=== PATIENT | male | born 1945 | race Caucasian/White ===

== ENCOUNTER 2018-08-10 13:10 | Emergency (ER) | payer MEDICARE, OTHER ==
[~2018-08-10] VITALS: Ht 185.4 cm; Wt 93.0 kg
[~2018-08-10 13:10] MED LIST: ASPI-1265 PO; ATOR10TA87 PO; CLOP75TA15 PO; METO25TA6 PO; NITR0.4T48 SL; VALS80TA2 PO; VARE0.5T PO
[2018-08-10] MEDS ORDERED: aspirin 81mg tab.chew PO ONE (13:15)
[2018-08-10] MEDS ORDERED: nitroGLYCERIN 0.4mg SUBLingual tab SL PRN (13:15)
[2018-08-10 13:58] LABS: BASOPHILS % (AUTO) 0.3 % (0-1); EOSINOPHILS # (AUTO) 0.7 X10'3 (0-0.9); EOSINOPHILS % (AUTO) 8.1 % (0-6); HEMOGLOBIN 15.2 g/dl (14.0-17.9); LYMPHOCYTES % (AUTO) 22.5 % (21-51); MEAN CORPUSCULAR HEMOGLOBIN 29.1 PG (27.0-31.0); MEAN CORPUSCULAR HGB CONC 33.8 % (33.0-36.5); MEAN PLATELET VOLUME 9.2 FL (7.4-10.4); MONOCYTES # (AUTO) 0.6 X10'3 (0-0.9); NEUTROPHILS # (AUTO) 5.6 X10'3 (1.8-7.7); NEUTROPHILS % (AUTO) 62.1 % (42-75); PLATELET COUNT 186 X10'3 (140-440); RED BLOOD COUNT 5.23 X10'6 (4.70-6.10); RED CELL DISTRIBUTION WIDTH 13.7 % (11.5-14.5); WHITE BLOOD COUNT 9.1 X10'3 (4.5-11.0)
[2018-08-10 14:11] LABS: ALANINE AMINOTRANSFERASE 32 U/L (12-78); ALBUMIN 3.4 G/DL (3.4-5.0); ALKALINE PHOSPHATASE 79 IU/L (46-116); ANION GAP 7 (8-16); ASPARTATE AMINO TRANSFERASE 20 U/L (10-37); BILIRUBIN,TOTAL 0.6 MG/DL (0.1-1.0); BLOOD UREA NITROGEN 13 MG/DL (7-18); BUN/CREATININE RATIO 12.6 (5.4-32.0); CALCIUM 10.1 MG/DL (8.5-10.1); CHLORIDE 103 MMOL/L (99-107); CREATININE 1.03 MG/DL (0.60-1.10); GLUCOSE 155 MG/DL (70-104); SODIUM 135 MMOL/L (135-145); TOTAL PROTEIN 6.9 G/DL (6.4-8.2); eGFR 71 ML/MIN
[2018-08-10 14:18] LABS: MAGNESIUM 1.8 MG/DL (1.5-2.4)
[2018-08-10 14:49] LABS: CLARITY,URINE CLEAR (Clear); COLOR,URINE YELLOW (Yellow); GLUCOSE, URINE NEGATIVE (Neg); KETONES,URINE NEGATIVE (Neg); LEUKOCYTE ESTERASE ,URINE NEGATIVE (Neg); NITRITES, URINE NEGATIVE (Neg); OCCULT BLOOD,URINE NEGATIVE (Neg); PROTEIN,URINE NEGATIVE (Neg); UROBILINOGEN,URINE 0.2 E.U/dL (0.2-1.0)
[2018-08-10 14:54] LABS: UA COLLECTION TYPE CLN CATCH MIDSTREAM
[2018-08-10 15:28] LABS: HEMOGLOBIN A1C 6.4 % (4.5-6.2)
[2018-08-10 15:34] LABS: CHOL/HDL RATIO 4.2 (0.00-4.99); CHOLESTEROL 135 MG/DL (0-200); HDL CHOLESTEROL 32 MG/DL (35-60); LDL CHOLESTEROL 76 MG/DL (50-100); TRIGLYCERIDES 322 MG/DL (20-135)
[2018-08-10 18:17] VITALS: BP 133/78
== END 2018-08-10 18:20 | disposition home or self-care (01) ==
LOC: ER 13:11
DX: I65.22 Occlusion and stenosis of left carotid artery (principal); R53.1 Weakness; R07.89 Other chest pain; R73.9 Hyperglycemia, unspecified; I25.10 Atherosclerotic heart disease of native coronary artery without angina pectoris; E78.00 Pure hypercholesterolemia, unspecified; I10 Essential (primary) hypertension; I25.2 Old myocardial infarction; G89.29 Other chronic pain; F17.200 Nicotine dependence, unspecified, uncomplicated; Z95.5 Presence of coronary angioplasty implant and graft; Z88.0 Allergy status to penicillin; Z88.8 Allergy status to other drugs, medicaments and biological substances; Z79.82 Long term (current) use of aspirin; Z79.899 Other long term (current) drug therapy
CPT/HCPCS: 36415; 71045; 80053; 80061; 81003; 83036; 83735; 83880; 84439; 84443; 84484; 85025; 93005; 93970; 99285

== ENCOUNTER 2019-06-21 09:33 | Inpatient (IN) | payer OTHER ==
[2019-06-20 16:42] LABS: BASOPHILS # (AUTO) 0.1 X10'3 (0-0.2); BASOPHILS % (AUTO) 0.8 % (0-1); EOSINOPHILS # (AUTO) 0.6 X10'3 (0-0.9); EOSINOPHILS % (AUTO) 9.1 % (0-6); LYMPHOCYTES # (AUTO) 1.7 X10'3 (1.1-4.8); LYMPHOCYTES % (AUTO) 26.7 % (21-51); MEAN CORPUSCULAR HEMOGLOBIN 27.3 PG (27.0-31.0); MEAN CORPUSCULAR HGB CONC 32.9 g/dL (33.0-36.5); MEAN PLATELET VOLUME 8.3 FL (7.4-10.4); MONOCYTES # (AUTO) 0.6 X10'3 (0-0.9); MONOCYTES % (AUTO) 9.1 % (2-12); NEUTROPHILS # (AUTO) 3.5 X10'3 (1.8-7.7); NEUTROPHILS % (AUTO) 54.3 % (42-75); PRE OP HEMATOCRIT 44.5 % (42.0-52.0); PRE OP HEMOGLOBIN 14.6 g/dL (14.0-17.9); PRE OP PLATELET COUNT 200 X10'3 (140-440); RED BLOOD COUNT 5.36 X10'6 (4.70-6.10); RED CELL DISTRIBUTION WIDTH 15.6 % (11.5-14.5)
[2019-06-20 16:59] LABS: PRE OP PROTIME 10.2 SECONDS (9.0-12.0)
[2019-06-20 17:00] LABS: ALBUMIN 3.7 G/DL (3.4-5.0); ALBUMIN/GLOBULIN RATIO 1.1 (1.1-1.5); ALKALINE PHOSPHATASE 87 IU/L (46-116); BLOOD UREA NITROGEN 14 MG/DL (7-18); BUN/CREATININE RATIO 14.1 (5.4-32.0); CALCIUM 9.9 MG/DL (8.5-10.1); CHLORIDE 105 MMOL/L (99-107); CREATININE 0.99 MG/DL (0.60-1.10); PRE OP ALT 32 U/L (30-65); PRE OP ANION GAP 4 (8-16); PRE OP AST 16 U/L (10-37); PRE OP BILIRUB, TOTAL 0.3 MG/DL (0.0-1.0); PRE OP GLUCOSE 114 MG/DL (70-104); PRE OP POTASSIUM 4.2 MMOL/L (3.4-5.1); PRE OP SODIUM 137 MMOL/L (135-145); TOTAL CARBON DIOXIDE 28.3 MMOL/L (24-32); TOTAL PROTEIN 7.2 G/DL (6.4-8.2); eGFR 74 ML/MIN
[2019-06-21] VITALS (23 sets, daily range): BP systolic 121–180; BP diastolic 62–96
[~2019-06-21] VITALS: Ht 185.4 cm; Wt 85.4 kg
[~2019-06-21 09:33] MED LIST changes: -NITR0.4T48 SL; +TRAZ-251 PO; -VARE0.5T PO; +heparin 10,000 units/1 ML INJ ONE
[2019-06-21] MEDS ORDERED: famotidine 20mg tablet PO ONE (10:45)
[2019-06-21] MEDS ORDERED: albuterol 2.5 MG/3 ML nebule NEB ONE (10:45)
[2019-06-21] MEDS ORDERED: ringers solution, lacted 1,000 ML IV SCH ×2 (10:45→14:38)
[2019-06-21] MEDS ORDERED: DOCUMENT DATE & TIME OF BETA-BLOCKER PO ONE (10:45)
[2019-06-21] MEDS ORDERED: clindamycin-Cleocin 900mg/D5W 50 ML IV ONE (10:45)
[2019-06-21] MEDS ORDERED: METO25TA6 PO (11:12)
[2019-06-21] MEDS: phenylephrine inj 20 MG in normal saline 250ml IV soln 248 ML IV SCH ×2 (11:25→18:05)
--- NOTE | 2019-06-21 12:32 | NUR ---
hematoma l hip size golf ball dr campbell aware and in to examine
[2019-06-21] MEDS ORDERED: fentaNYL /PF 50mcg/ml 5ml ampule ONE (12:41)
[2019-06-21] MEDS ORDERED: LIDOcaine 2% (20mg/ml) 5ml vial ONE (12:57)
[2019-06-21] MEDS ORDERED: rocuronium 10mg/ml inj IV ONE (12:57)
[2019-06-21] MEDS ORDERED: propofol inj 20 ML IV ONE (12:57)
[2019-06-21] MEDS ORDERED: heparin 1,000unit/ml 10ml vial 10 ML ONE (12:57)
[2019-06-21] MEDS ORDERED: dexamethasone sod phosphate 4mg/ml inj. ONE (12:58)
[2019-06-21] MEDS ORDERED: LIDOcaine 1% 30ml preserv. free vial ONE (13:13)
[2019-06-21] MEDS: nitroPRUSSIDE in NS 100 ML IV SCH (14:00)
--- NOTE | 2019-06-21 14:22 | NUR ---
Received from OR via ICU bed, accompanied by Anesthesiologist Sandra and report given by Anesthesiolgist. Pt alert and impulsive, MD at bedside administering meds. VS stable, pt unable to wear mask due to severe PTSD, high arash at 10L. Pt gets sleepy but extremely anxious and impulsive when he wakes up. MD requests small dose of sedation. ART line waveform acceptable after zeroing, ERA to left neck is present draining sanguinous fluid. MD remains at bedside.
[2019-06-21] MEDS ORDERED: labetalol 20mg/4ml (5mg/ml) syringe IV ONE (14:24)
[2019-06-21] MEDS: MIDAZolam 5mg/ml 2ml vial IV ONE ×2 (14:25→14:45)
[2019-06-21] MEDS ORDERED: midazolam 2 mg/2 ml injection ONE (14:26)
[2019-06-21] MEDS ORDERED: MIDAZolam 5mg/ml 2ml vial IV ONE (14:30)
[2019-06-21] MEDS ORDERED: nitroPRUSSIDE in NS 100 ML IV PRN (14:38)
[2019-06-21] MEDS ORDERED: phenylephrine inj 20 MG in normal saline 250ml IV soln 250 ML IV PRN (14:38)
[2019-06-21] MEDS ORDERED: HYDROmorphone inj. 0.5 MG/0.5 ML DISP.SYRIN IV PRN (14:40)
[2019-06-21] MEDS ORDERED: ondansetron/PF 4mg/2ml inj IV PRN (14:40)
--- NOTE | 2019-06-21 15:10 | NUR ---
Pt wakes up and is extremely anxious, trying to get out of bed, tugging at ERA drain and BP increases significantly. After much negotiation and attemptimg to calm patient and get him back into bed with multiple nurses present, versed given per MD orders. Pt still responsive but calm enough to get back into bed and BP stabilizes. Sanguinous fluid remains in ERA drain, visualization under dressing reveals very mild leakage and some swelling to surgical sight. Will continue to monitor closely and let ICU nurse know also to watch for swelling closely.
--- NOTE | 2019-06-21 15:42 | NUR ---
Pt has been difficult to calm, but remains in bed at this time. Pt successfully and safely transferred to CICU 2013, remains anxious but cooperative at this time. Pt transferred to ICU monitor without issues, report given earlier to Kristin DONIS and she is present at bedside during transfer. Pt's ART line remains intact, zeroed and good waveform present. aware of transfer. Belongings sent with patient on the bed.
[2019-06-21] MEDS ORDERED: glycopyrrolate 0.2mg/ml inj ONE (15:57)
[2019-06-21] MEDS ORDERED: neostigmine methylsulfate 1 MG/ML 10ml vial ONE (15:57)
--- NOTE | 2019-06-21 16:00 | NUR ---
Patient arrived to room with recover room RN, Georgina, at bedside. Patient anxious.
--- NOTE | 2019-06-21 17:43 | NUR ---
Received from OR via ICU bed, accompanied by Anesthesiologist Sandra and report given by Anesthesiolgist. Pt alert and impulsive, MD at bedside administering meds. VS stable, pt unable to wear mask due to severe PTSD, high arash at 10L. Pt gets sleepy but extremely anxious and impulsive when he wakes up. MD requests small dose of sedation. ART line waveform acceptable after zeroing, ERA to left neck is present draining sanguinous fluid. MD remains at bedside. Addendum: 06/21/19 at 2013 by Allyn Rios RN NOTE MADE AT INCORRECT TIME. Please see same note at earlier time!
[2019-06-21] MEDS ORDERED: ibuprofen tablet 400 MG TABLET PO PRN (17:45)
--- NOTE | 2019-06-21 18:29 | NUR ---
assumed care from hansa DONIS no questions or concerns after SBAR
[2019-06-21] MEDS: metoprolol tartrate 25mg tablet PO SCH (19:34)
--- NOTE | 2019-06-21 20:00 | NUR ---
patient in bed talking with sitter no observable s/s of acute stress at this time
[2019-06-21] MEDS ORDERED: traZODone 50mg tablet PO SCH (21:00)
[2019-06-21] MEDS ORDERED: atorvastatin 10mg tablet PO SCH (21:00)
--- NOTE | 2019-06-21 21:08 | NUR ---
patient in bed eyes closed blankets on hob 45 degrees television on rr even un labored no observable s/s of acute stress at this time, sitter at bedside
--- NOTE | 2019-06-21 22:43 | NUR ---
patient un able to fall asleep, was able to talk with patient help decrease anxiety, patient verbalized " i will ge through tonight thank you." patient in bed hob 45 degrees patient has over head light on and is talking with sitter, rr even un labored no observable s/s of acute stress at this time
[2019-06-22] VITALS (11 sets, daily range): BP systolic 107–149; BP diastolic 40–88
--- NOTE | 2019-06-22 00:26 | NUR ---
patient appears to be resting comfortably, patient is up in bed watching television, sitter with patient, sitter states " patient needs to be re directed every now and then." rr even un labored no observable s/s of acute stress at this time
[2019-06-22] MEDS: phenylephrine inj 20 MG in normal saline 250ml IV soln 248 ML IV SCH (00:45)
--- NOTE | 2019-06-22 02:31 | NUR ---
patient starting to get anxious and impulsive, I and sitters keep re-directing patient which helps briefly, before patient starts to get impulsive and anxious, wanting to get up out of bed and pull on lines, staff and I let patient know they are to be very very careful with all the lines, and it is ok to get up out of bed and use the chair,patient verbalizes understanding the importance of the lines. sitter at bedside call light with in reach of patient
[2019-06-22] MEDS: nitroPRUSSIDE in NS 100 ML IV SCH (02:54)
--- NOTE | 2019-06-22 04:06 | NUR ---
patient appears to have less anxiety and is in bed with covers on smiling while talking with the sitter provided, patients rr even un labored non observable s/s of acute stress at this time
--- NOTE | 2019-06-22 05:09 | NUR ---
Patient appears to be resting, patient has been up down to chair "can't get comfortable." states patient, patient denies pain states " i just want to go outside that's what i do." verbalized to the patient we need to stay in the hospital at this time, patient verbalized understanding, rr even un labored no observable s/s of acute stress at this time
--- NOTE | 2019-06-22 06:18 | NUR ---
sbar off to artie rn no questions or concerns after SBAR
[2019-06-22] MEDS: metoprolol tartrate 25mg tablet PO SCH (07:45)
[2019-06-22] MEDS ORDERED: losartan 50mg tablet PO SCH (08:00)
[2019-06-22] MEDS ORDERED: aspirin 81mg tab.chew PO SCH (08:00)
[2019-06-22] MEDS ORDERED: clopidogrel 75mg tablet PO SCH (08:00)
[2019-06-22 09:32] LABS: BASOPHILS % (AUTO) 0.4 % (0-1); EOSINOPHILS % (AUTO) 0.3 % (0-6); HEMATOCRIT 38.7 % (42.0-52.0); HEMOGLOBIN 12.5 g/dl (14.0-17.9); LYMPHOCYTES # (AUTO) 1.6 X10'3 (1.1-4.8); LYMPHOCYTES % (AUTO) 12.9 % (21-51); MEAN CORPUSCULAR HGB CONC 32.3 g/dL (33.0-36.5); MEAN CORPUSCULAR VOLUME 83.5 FL (78-98); MEAN PLATELET VOLUME 8.7 FL (7.4-10.4); MONOCYTES # (AUTO) 1.1 X10'3 (0-0.9); MONOCYTES % (AUTO) 8.5 % (2-12); NEUTROPHILS # (AUTO) 9.9 X10'3 (1.8-7.7); NEUTROPHILS % (AUTO) 77.9 % (42-75); PLATELET COUNT 193 X10'3 (140-440); RED BLOOD COUNT 4.63 X10'6 (4.70-6.10); RED CELL DISTRIBUTION WIDTH 15.4 % (11.5-14.5); WHITE BLOOD COUNT 12.7 X10'3 (4.5-11.0)
[2019-06-22 09:38] LABS: ALBUMIN 3.6 G/DL (3.4-5.0); ANION GAP 8 (8-16); BLOOD UREA NITROGEN 22 MG/DL (7-18); CALCIUM 10.2 MG/DL (8.5-10.1); CHLORIDE 101 MMOL/L (99-107); GLUCOSE 105 MG/DL (70-104); POTASSIUM 5.8 MMOL/L (3.5-5.1); SODIUM 134 MMOL/L (135-145); TOTAL CARBON DIOXIDE 24.8 MMOL/L (24-32); eGFR 66 ML/MIN
[2019-06-22] MEDS ORDERED: LORazepam 0.5 MG tablet PO PRN (12:55)
--- NOTE | 2019-06-22 13:26 | NUR ---
Dr Connolly at bedside order to repeat K draw and to pull drain. Drain pulled by Rn pt tolerated well neck dressed bruising noted. Will cont to monitor
--- NOTE | 2019-06-22 14:23 | NUR ---
Pt dc home per Dr Connolly. and pt given instructions on wound care and s/s of infection, and stroke. Pt verbalized understanding. Pt dc home with belongings via wheelchair to the lobby.
== END 2019-06-22 14:20 | disposition home or self-care (01) | DRG 38 ==
LOC: PAS IN 09:33 → EDSTATUS 12:45 → CICU 2S 15:35
PROVIDERS: ADMIT Surgery; ATTEND Surgery
PROC: 03CN0ZZ Extirpation of Matter from Left External Carotid Artery, Open Approach (ICD-10-PCS; 2019-06-21)
PROC: 03CL0ZZ Extirpation of Matter from Left Internal Carotid Artery, Open Approach (ICD-10-PCS; 2019-06-21)
PROC: 03CJ0ZZ Extirpation of Matter from Left Common Carotid Artery, Open Approach (ICD-10-PCS; principal; 2019-06-21 12:31)
DX: I65.22 Occlusion and stenosis of left carotid artery (principal); E87.1 Hypo-osmolality and hyponatremia; F32.9 Major depressive disorder, single episode, unspecified; J44.9 Chronic obstructive pulmonary disease, unspecified; I10 Essential (primary) hypertension; E11.9 Type 2 diabetes mellitus without complications; G47.33 Obstructive sleep apnea (adult) (pediatric); F43.10 Post-traumatic stress disorder, unspecified; I25.10 Atherosclerotic heart disease of native coronary artery without angina pectoris; E78.00 Pure hypercholesterolemia, unspecified; G89.29 Other chronic pain; F41.9 Anxiety disorder, unspecified; Z80.42 Family history of malignant neoplasm of prostate; Z82.0 Family history of epilepsy and other diseases of the nervous system; Z82.49 Family history of ischemic heart disease and other diseases of the circulatory system; Z88.0 Allergy status to penicillin; Z88.5 Allergy status to narcotic agent; I25.2 Old myocardial infarction; Z98.61 Coronary angioplasty status
CPT/HCPCS: 36415; 80048; 80053; 82948; 84132; 85025; 85610; 85730; 86885; 86900; 86901; 87081; 93005; 94640; 94760; 95813; 95816; A4618; A6258; A7000; G0378; J1100; J1644; J2001; J2250; J2370; J2704; J2710; J3010; J3490; J7040; J7050; J7120

== ENCOUNTER → 2021-04-30 | Outpatient (CLI) | payer OTHER ==
[~2021-04-30] MED LIST changes: +LOP25T PO; -METO25TA6 PO; -heparin 10,000 units/1 ML INJ ONE
== END | disposition home or self-care (01) ==
LOC: CARD DIAG 12:52
DX: I37.1 Nonrheumatic pulmonary valve insufficiency (principal); J98.6 Disorders of diaphragm
CPT/HCPCS: 93306

== ENCOUNTER 2021-08-04 12:33 | Emergency (ER) | payer OTHER ==
[~2021-08-04] VITALS: Ht 185.4 cm; Wt 90.0 kg
[2021-08-04 12:45] VITALS: BP 135/80
[2021-08-04 14:26] LABS: BASOPHILS % (AUTO) 0.6 % (0-1); EOSINOPHILS # (AUTO) 0.6 X10'3 (0-0.9); EOSINOPHILS % (AUTO) 7.1 % (0-6); HEMATOCRIT 46.3 % (42.0-52.0); HEMOGLOBIN 15.5 g/dl (14.0-17.9); LYMPHOCYTES # (AUTO) 1.7 X10'3 (1.1-4.8); LYMPHOCYTES % (AUTO) 21.4 % (21-51); MEAN CORPUSCULAR HGB CONC 33.5 g/dL (33.0-36.5); MEAN CORPUSCULAR VOLUME 86.4 FL (78-98); MEAN PLATELET VOLUME 9.1 FL (7.4-10.4); MONOCYTES # (AUTO) 0.7 X10'3 (0-0.9); MONOCYTES % (AUTO) 8.2 % (2-12); NEUTROPHILS # (AUTO) 5.1 X10'3 (1.8-7.7); NEUTROPHILS % (AUTO) 62.7 % (42-75); PLATELET COUNT 193 X10'3 (140-440); RED BLOOD COUNT 5.36 X10'6 (4.70-6.10); RED CELL DISTRIBUTION WIDTH 14.3 % (11.5-14.5); WHITE BLOOD COUNT 8.1 X10'3 (4.5-11.0)
[2021-08-04 14:35] LABS: ALANINE AMINOTRANSFERASE 36 U/L (12-78); ALBUMIN 3.7 G/DL (3.4-5.0); ALKALINE PHOSPHATASE 64 IU/L (46-116); ANION GAP 8 (8-16); ASPARTATE AMINO TRANSFERASE 24 U/L (10-37); BILIRUBIN,TOTAL 0.7 MG/DL (0.1-1.0); BLOOD UREA NITROGEN 15 MG/DL (7-18); BUN/CREATININE RATIO 17.2 (5.4-32.0); CALCIUM 9.5 MG/DL (8.5-10.1); CHLORIDE 104 MMOL/L (99-107); CREATININE 0.87 MG/DL (0.60-1.10); GLUCOSE 106 MG/DL (70-104); POTASSIUM 4.6 MMOL/L (3.5-5.1); SODIUM 138 MMOL/L (135-145); TOTAL CARBON DIOXIDE 26.4 MMOL/L (24-32); TOTAL PROTEIN 7.5 G/DL (6.4-8.2); eGFR 86 ML/MIN
== END 2021-08-04 15:41 | disposition home or self-care (01) ==
LOC: ER 12:33
DX: S00.83XA Contusion of other part of head, initial encounter (principal); S60.222A Contusion of left hand, initial encounter; S60.221A Contusion of right hand, initial encounter; H73.891 Other specified disorders of tympanic membrane, right ear; I25.10 Atherosclerotic heart disease of native coronary artery without angina pectoris; E78.00 Pure hypercholesterolemia, unspecified; I10 Essential (primary) hypertension; I25.2 Old myocardial infarction; G89.29 Other chronic pain; Z95.5 Presence of coronary angioplasty implant and graft; Z79.82 Long term (current) use of aspirin; Z79.899 Other long term (current) drug therapy; Z88.0 Allergy status to penicillin; Z88.5 Allergy status to narcotic agent; Z88.8 Allergy status to other drugs, medicaments and biological substances; W19.XXXA Unspecified fall, initial encounter; Y93.01 Activity, walking, marching and hiking; Y92.099 Unspecified place in other non-institutional residence as the place of occurrence of the external cause; Y99.8 Other external cause status
CPT/HCPCS: 36415; 70450; 70486; 72040; 80053; 85025; 99285

== ENCOUNTER 2021-10-09 05:35 | Emergency (ER) | payer OTHER, MEDICARE ==
[~2021-10-09] VITALS: Ht 185.4 cm; Wt 90.0 kg
[2021-10-09] MEDS: meclizine 12.5mg tablet PO ONE (06:01)
[2021-10-09] MEDS: ondansetron/PF 4mg/2ml inj IV ONE (06:39)
[2021-10-09] MEDS: normal saline 1000ML IV soln IVB ONE (06:40)
[2021-10-09] MEDS ORDERED: CefTRIAXone 1000mg IM Kit (w/lidocaine diluent) IM ONE (07:25)
[2021-10-09 07:42] LABS: BASOPHILS # (AUTO) 0.1 X10'3 (0-0.2); BASOPHILS % (AUTO) 0.7 % (0-1); EOSINOPHILS # (AUTO) 0.3 X10'3 (0-0.9); EOSINOPHILS % (AUTO) 4.6 % (0-6); HEMATOCRIT 41.4 % (42.0-52.0); HEMOGLOBIN 14.1 g/dl (14.0-17.9); LYMPHOCYTES % (AUTO) 14.4 % (21-51); MEAN CORPUSCULAR HEMOGLOBIN 29.4 PG (27.0-31.0); MEAN CORPUSCULAR VOLUME 86.4 FL (78-98); MEAN PLATELET VOLUME 9.8 FL (7.4-10.4); MONOCYTES # (AUTO) 0.6 X10'3 (0-0.9); MONOCYTES % (AUTO) 9.1 % (2-12); NEUTROPHILS % (AUTO) 71.2 % (42-75); PLATELET COUNT 161 X10'3 (140-440); RED BLOOD COUNT 4.79 X10'6 (4.70-6.10); WHITE BLOOD COUNT 7.1 X10'3 (4.5-11.0)
[2021-10-09 08:00] LABS: ALANINE AMINOTRANSFERASE 29 U/L (12-78); ALBUMIN/GLOBULIN RATIO 0.9 (1.1-1.5); ALKALINE PHOSPHATASE 62 IU/L (46-116); ANION GAP 8 (8-16); BILIRUBIN,TOTAL 0.5 MG/DL (0.1-1.0); BLOOD UREA NITROGEN 16 MG/DL (7-18); CHLORIDE 108 MMOL/L (99-107); GLUCOSE 136 MG/DL (70-104); SODIUM 141 MMOL/L (135-145); TOTAL CARBON DIOXIDE 25.3 MMOL/L (24-32); TOTAL PROTEIN 6.2 G/DL (6.4-8.2); eGFR > 90 ML/MIN
[2021-10-09 08:16] LABS: ASPARTATE AMINO TRANSFERASE 30 U/L (10-37); POTASSIUM 4.8 MMOL/L (3.5-5.1)
[2021-10-09 08:35] VITALS: BP 162/87
[2021-10-09] MEDS ORDERED: MECL-159 PO (09:11)
[2021-10-09] MEDS ORDERED: ONDA4TAB12 PO (09:11)
== END 2021-10-09 09:20 | disposition home or self-care (01) ==
LOC: ER 05:35
DX: R42 Dizziness and giddiness (principal); R53.1 Weakness; R11.10 Vomiting, unspecified; I25.10 Atherosclerotic heart disease of native coronary artery without angina pectoris; E78.00 Pure hypercholesterolemia, unspecified; I10 Essential (primary) hypertension; I25.2 Old myocardial infarction; G89.29 Other chronic pain; F41.9 Anxiety disorder, unspecified; Z98.890 Other specified postprocedural states; Z88.0 Allergy status to penicillin; Z88.5 Allergy status to narcotic agent; Z88.8 Allergy status to other drugs, medicaments and biological substances; Z79.82 Long term (current) use of aspirin; Z79.899 Other long term (current) drug therapy
CPT/HCPCS: 36415; 80053; 83880; 84484; 85025; 93005; 96361; 96374; 99284; J2405; J7030; J8597

== ENCOUNTER 2024-01-15 16:11 | Emergency (ER) | payer OTHER, MEDICARE ==
[~2024-01-15] VITALS: Ht 185.4 cm; Wt 84.1 kg
[~2024-01-15 16:11] MED LIST changes: +CYAN-34 PO; +DONE-46 PO; -TRAZ-251 PO
[2024-01-15] MEDS ORDERED: haloperidol decanoate 50mg/ml 1ml**long-acting** injection IM ONE (16:20)
[2024-01-15] MEDS: diphenhydrAMINE 50 mg/ml inj IV ONE (16:22)
[2024-01-15] MEDS: haloperidol lactate 5mg/ml inj IM ONE (16:27)
[2024-01-15] MEDS: quetiapine 100mg tablet PO STA (17:17)
[2024-01-15 17:34] LABS: BASOPHILS % (AUTO) 0.6 % (0-1); EOSINOPHILS # (AUTO) 0.3 X10'3 (0-0.9); EOSINOPHILS % (AUTO) 5.1 % (0-6); HEMATOCRIT 43.8 % (42.0-52.0); HEMOGLOBIN 14.4 g/dl (14.0-17.9); LYMPHOCYTES # (AUTO) 1.4 X10'3 (1.1-4.8); LYMPHOCYTES % (AUTO) 25.7 % (21-51); MEAN CORPUSCULAR HEMOGLOBIN 28.2 PG (27.0-31.0); MEAN CORPUSCULAR HGB CONC 32.8 g/dL (33.0-36.5); MEAN CORPUSCULAR VOLUME 85.9 FL (78-98); MEAN PLATELET VOLUME 9.7 FL (7.4-10.4); MONOCYTES # (AUTO) 0.4 X10'3 (0-0.9); MONOCYTES % (AUTO) 8.1 % (2-12); NEUTROPHILS # (AUTO) 3.2 X10'3 (1.8-7.7); NEUTROPHILS % (AUTO) 60.5 % (42-75); PLATELET COUNT 126 X10'3 (140-440); RED BLOOD COUNT 5.09 X10'6 (4.70-6.10); RED CELL DISTRIBUTION WIDTH 14.8 % (11.5-14.5); WHITE BLOOD COUNT 5.3 X10'3 (4.5-11.0)
[2024-01-15 17:42] LABS: ALBUMIN 3.5 G/DL (3.4-5.0); ANION GAP 8 (8-16); BLOOD UREA NITROGEN 19 MG/DL (7-18); BUN/CREATININE RATIO 18.6 (10.0-20.0); CALCIUM 9.6 MG/DL (8.5-10.1); CHLORIDE 101 MMOL/L (99-107); CREATININE 1.02 MG/DL (0.60-1.10); GLUCOSE 81 MG/DL (70-104); POTASSIUM 3.8 MMOL/L (3.5-5.1); SODIUM 138 MMOL/L (135-145); TOTAL CARBON DIOXIDE 29.1 MMOL/L (24-32); eCRCL 69 ML/MIN; eGFR 71 ML/MIN
[2024-01-15] MEDS ORDERED: OLANZapine 5mg rapidly disint. tablet PO ONE (18:25)
[2024-01-15] MEDS: OLANZapine **IM** 10 mg inj. IM ONE (18:50)
[2024-01-15] MEDS: normal saline 1000ML IV soln IV ONE (20:01)
[2024-01-15] MEDS: cloNIDine 0.1 MG/24 HOUR patch (7 day patch) TD ONE (20:25)
[2024-01-15] MEDS: labetalol 20mg/4ml (5mg/ml) syringe IV ONE ×2 (22:12→22:59)
[2024-01-16 00:52] LABS: BILIRUBIN,URINE NEGATIVE (Neg); CLARITY,URINE CLEAR (Clear); COLOR,URINE YELLOW (Yellow); GLUCOSE, URINE NEGATIVE (Neg); KETONES,URINE 15 mg/dl (Neg); LEUKOCYTE ESTERASE ,URINE NEGATIVE (Neg); NITRITES, URINE NEGATIVE (Neg); OCCULT BLOOD,URINE MODERATE (Neg); PROTEIN,URINE NEGATIVE (Neg); UROBILINOGEN,URINE 0.2 E.U/dL (0.2-1.0)
[2024-01-16 00:53] LABS: UA COLLECTION TYPE STRAIGHT CATH
[2024-01-16 01:11] LABS: BACTERIA,URINE NONE SEEN /HPF (Neg); WBC,URINE NONE SEEN /HPF (0-4)
[2024-01-16 01:13] LABS: MUCUS STRANDS NONE SEEN /LPF (Neg); SQUAMOUS EPITHELIAL CELL,UR NONE SEEN /LPF (FEW)
[2024-01-16] MEDS: OLANZapine **IM** 10 mg inj. IM ONE (04:03)
[2024-01-16] MEDS: dexamethasone sod phosphate 10mg/ml inj IV STA (08:53)
[2024-01-16] MEDS: hydrALAZINE 20mg/ml inj. IV ONE ×2 (08:53→12:53)
[2024-01-16] MEDS ORDERED: iohexol 300mg/ml 100ml inj. ONE (09:02)
[2024-01-16] MEDS: cefepime 2g/NS 100ml ADVANTAGE 100 ML IV ONE (09:32)
[2024-01-16] MEDS: VANCOmycin 1250MG/NS 250ml Bag 250 ML IV ONE (10:14)
[2024-01-17 09:06] VITALS: BP 187/104; PULSE 120; RESP 20; TEMP 98.6; O2SAT 96
== END 2024-01-17 09:08 | disposition home or self-care (01) ==
LOC: ER 16:12
DX: F03.90 Unspecified dementia, unspecified severity, without behavioral disturbance, psychotic disturbance, mood disturbance, and anxiety (principal); R45.1 Restlessness and agitation; E78.00 Pure hypercholesterolemia, unspecified; I10 Essential (primary) hypertension; Z88.0 Allergy status to penicillin; Z88.8 Allergy status to other drugs, medicaments and biological substances; Z88.5 Allergy status to narcotic agent; Z79.82 Long term (current) use of aspirin; Z79.899 Other long term (current) drug therapy
CPT/HCPCS: 36415; 70450; 71045; 74176; 80048; 81001; 83605; 85025; 87040; 93005; 96361; 96365; 96368; 96372; 96375; 96376; 99285; J0360; J0692; J1100; J1200; J1630; J3370; J3490; J7030; Q9967

== ENCOUNTER 2024-08-28 14:35 | Emergency (ER) | payer OTHER, MEDICARE ==
[~2024-08-28] VITALS: Ht 188 cm; Wt 102.3 kg
[2024-08-28 14:42] VITALS: TEMP 98
[2024-08-28 15:39] LABS: BASOPHILS % (AUTO) 0.7 % (0-1); EOSINOPHILS # (AUTO) 0.4 X10'3 (0-0.9); EOSINOPHILS % (AUTO) 6.7 % (0-6); HEMATOCRIT 42.2 % (42.0-52.0); HEMOGLOBIN 14.3 g/dl (14.0-17.9); LYMPHOCYTES # (AUTO) 1.5 X10'3 (1.1-4.8); LYMPHOCYTES % (AUTO) 22.1 % (21-51); MEAN CORPUSCULAR HEMOGLOBIN 29.9 PG (27.0-31.0); MEAN CORPUSCULAR HGB CONC 33.9 g/dL (33.0-36.5); MEAN CORPUSCULAR VOLUME 88.3 FL (78-98); MEAN PLATELET VOLUME 9.8 FL (7.4-10.4); MONOCYTES # (AUTO) 0.5 X10'3 (0-0.9); MONOCYTES % (AUTO) 7.3 % (2-12); NEUTROPHILS # (AUTO) 4.2 X10'3 (1.8-7.7); NEUTROPHILS % (AUTO) 63.2 % (42-75); PLATELET COUNT 179 X10'3 (140-440); RED BLOOD COUNT 4.78 X10'6 (4.70-6.10); RED CELL DISTRIBUTION WIDTH 13.8 % (11.5-14.5); WHITE BLOOD COUNT 6.7 X10'3 (4.5-11.0)
[2024-08-28 15:54] LABS: ALANINE AMINOTRANSFERASE 22 U/L (12-78); ALBUMIN 3.3 G/DL (3.4-5.0); ALBUMIN/GLOBULIN RATIO 0.9 (1.1-1.5); ALKALINE PHOSPHATASE 79 IU/L (46-116); ANION GAP 9 (8-16); ASPARTATE AMINO TRANSFERASE 23 U/L (10-37); BILIRUBIN,TOTAL 1.4 MG/DL (0.1-1.0); BLOOD UREA NITROGEN 24 MG/DL (7-18); BUN/CREATININE RATIO 20.3 (10.0-20.0); CALCIUM 9.6 MG/DL (8.5-10.1); CHLORIDE 102 MMOL/L (99-107); CREATININE 1.18 MG/DL (0.60-1.10); GLUCOSE 187 MG/DL (70-104); POTASSIUM 3.4 MMOL/L (3.5-5.1); SODIUM 138 MMOL/L (135-145); TOTAL CARBON DIOXIDE 27.4 MMOL/L (24-32); TOTAL PROTEIN 6.8 G/DL (6.4-8.2); eCRCL 60 ML/MIN; eGFR 60 ML/MIN
[2024-08-28 17:46] LABS: BILIRUBIN,URINE NEGATIVE (Neg); CLARITY,URINE CLEAR (Clear); COLOR,URINE YELLOW (Yellow); GLUCOSE, URINE NEGATIVE (Neg); KETONES,URINE NEGATIVE (Neg); LEUKOCYTE ESTERASE ,URINE NEGATIVE (Neg); NITRITES, URINE NEGATIVE (Neg); OCCULT BLOOD,URINE NEGATIVE (Neg); PROTEIN,URINE 30 mg/dl (Neg); UROBILINOGEN,URINE 0.2 E.U/dL (0.2-1.0)
[2024-08-28 17:54] LABS: UA COLLECTION TYPE URINAL
[2024-08-28 17:56] LABS: WBC,URINE 0-4 /HPF (0-4)
[2024-08-28 17:57] LABS: COARSE GRANULAR CAST 0-3 /LPF (NEGATIVE); MUCUS STRANDS FEW /LPF (Neg); SQUAMOUS EPITHELIAL CELL,UR FEW /LPF (FEW)
[2024-08-28 18:11] LABS: BACTERIA,URINE FEW /HPF (Neg); CAL OXALATE CRYSTALS 4+ /HPF (NEGATIVE); RBC,URINE 0-2 /HPF (0-2)
[2024-08-28 18:16] VITALS: BP 163/89; PULSE 77; RESP 19; O2SAT 97
== END 2024-08-28 18:18 | disposition home or self-care (01) ==
LOC: ER 14:36
DX: F03.90 Unspecified dementia, unspecified severity, without behavioral disturbance, psychotic disturbance, mood disturbance, and anxiety (principal); R41.0 Disorientation, unspecified; R47.81 Slurred speech; E78.00 Pure hypercholesterolemia, unspecified; I10 Essential (primary) hypertension; I25.10 Atherosclerotic heart disease of native coronary artery without angina pectoris; I25.2 Old myocardial infarction; Z95.1 Presence of aortocoronary bypass graft; Z88.0 Allergy status to penicillin; Z88.5 Allergy status to narcotic agent; Z88.8 Allergy status to other drugs, medicaments and biological substances; Z79.899 Other long term (current) drug therapy
CPT/HCPCS: 36415; 70450; 80053; 81001; 85025; 99284

== ENCOUNTER 2025-02-01 11:21 | Emergency (ER) | payer OTHER, MEDICARE ==
[~2025-02-01] VITALS: Ht 182.9 cm; Wt 80.0 kg
[~2025-02-01 11:21] MED LIST changes: -ATOR10TA87 PO; +ATOR20TA66 PO; +BUSP5TAB3 PO; +CHOL500049 PO; -CLOP75TA15 PO; -CYAN-34 PO; +DEXA6TAB PO; -DONE-46 PO; +DONE-55 PO; +FLO0.4C PO; -LOP25T PO; +METO-384 PO; +NOR5T PO; -VALS80TA2 PO
[2025-02-01 11:27] VITALS: TEMP 97.5
--- NOTE | 2025-02-01 11:57 | Physician Documentation ---
History of Present Illness ~ Chief Complaint: ALOC Stated Complaint: ALOC Time Seen by MD: 11:55 OK to notify your PCP?: Yes Primary Medical Doctor: connie black Source: patient, family, RN/MD, EMS, RN notes reviewed, EMS notes reviewed, old records Mode of Arrival: EMS Exam Limitations: clinical condition HPI 79 year old male with history of dementia presents to the emergency department via EMS for complaints of respiratory distress. Per EMS his found him this morning shaking, altered and having difficulty breathing and working really hard to do so. She states that he has been increasingly altered for one week. Additionally she states that he has been having foul smelling urine and breath for three days. Per EMS patient was saturating at 96% and was afibrile en route with a bg of 103. states that patient takes Metroporol. Patient denies any other associated symptoms at this time. Patient denies any other alleviating or exacerbating factors. 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 Scheduled Aspirin (Aspirin), 1 TAB.CHEW PO DAILY, (Reported) Atorvastatin Calcium (Atorvastatin Calcium), 1 TAB PO DAILY, (Reported) Buspirone HCl (Buspirone HCl), 1 TAB PO Q12H, (Reported) Cholecalciferol (Vitamin D3) (Vitamin D3), 1 CAP PO Q7D, (Reported) Donepezil Hcl (Donepezil Hcl), 1 TAB PO DAILY, (Reported) Metoprolol Succinate (Metoprolol Succinate), 1 TAB PO DAILY, (Reported) Tamsulosin Hcl (Flomax), 1 CAP PO DAILY, (Reported) Discontinued Medications Amlodipine Besylate (Amlodipine Besylate), 2 TAB PO DAILY Discontinued Reason: patient no longer taking Dexamethasone (Dexamethasone), 6 MG PO DAILY Discontinued Reason: patient no longer taking Past Medical History Past Medical History: Dementia, Coronary Artery Disease, High Cholesterol, Hypertension, Myocardial Infarction, Chronic Pain, Anxiety Past Surgical History: angioplasty, coronary bypass surgery Patient History: Alzheimer's disease MOTHER FH: ovarian cancer in first degree relative FH: prostate cancer FAMILY/OTHER FAMILY/OTHER Drug Use: none Lives with: Spouse Lives In: Home Occupation: retired Review of Systems All Other Systems at this time: Reviewed and Negative ROS Unable to obtain ROS Physical Exam Vital Signs: RN Vital Signs have been reviewed: Yes, Temperature: 97.5, Source: Oral, Heart Rate: 85, Respiratory Rate: 18, BP: 200/103, Pulse Oximetry: 95, Weight: 80.000 Pulse Oximetry Reflects: adequate oxygenation Physical Exam General: The patient is demented and fails to answer questions. He is well developed, well nourished, nontoxic appearing and is in no acute distress. Skin: Donovan, warm and dry with no rashes. HEENT: Head was normocephalic and atraumatic. Eyes - pupils equal, round, reactive to light and accommodation. Extraocular movements were intact. Co njunctivae were nonicteric. Ears - bilateral tympanic membranes were normal. The mouth and oropharynx were clear with moist mucous membranes. There were no pharyngeal exudates or erythema. Neck: Supple and nontender. There was no jugular venous distention, lymphadenopathy, thyromegaly or masses. Chest: Clear to auscultation bilaterally without wheezes, rales or rhonchi. No accessory muscle use. No dullness to percussion. Heart: Rate regular and rhythmic. S1, S2. No murmurs. Palpation of the chest wall was normal. No rubs or thrills. Abdomen: Soft, nontender and nondistended. Positive bowel sounds. No guarding or rebound. No hepatosplenomegaly or palpable masses. Extremities: No cyanosis, clubbing or edema. The patient moves all extremities. Pulses were equal and symmetric. Neurologic: Cranial nerves II-XII were intact. Sensation was intact to light touch throughout. Motor strength was 5/5 in all four extremities. Deep tendon reflexes were intact in both upper and lower extremities. Psychologic: The patient demonstrated appropriate judgement and insight. Progress Results/Orders Reviewed/noted all lab results: Yes Results/Orders Orders - GUNNAR ALANIS MD Electrocardiogram (02/01/25 11:57) Culture Blood (02/01/25 11:57) Chest,Single View (02/01/25 11:57) Straight Cath For Urine Sample (02/01/25 11:57) Completed Orders - GUNNAR ALANIS MD Electrocardiogram (02/01/25 11:57) Cbc/Diff (02/01/25 11:57) MG (02/01/25 11:57) Chest,Single View (02/01/25 11:57) Normal Saline 1000ml (Sodium Chloride 10 (02/01/25 12:00) Procalcitonin (02/01/25 11:57) Ceftriaxone 2gm/D5w 50ml Bag (Rocephin 2 (02/01/25 12:00) BMP (02/01/25 11:57) Hs Troponin I W Calculations (02/01/25 11:57) Lacticsepsis (02/01/25 11:57) Morphine 4mg/Ml Inj. (Morphine Inj.) (02/01/25 12:45) Metoprolol Succinate Er Tablet (Toprol X (02/01/25 14:05) Ua W/Microscopic, Cult If Ind (02/01/25 13:10) Metoprolol Tartrate Inj (Lopressor Iv) (02/01/25 14:30) Medications Received in ER Medications (Trade) Dose Ordered Sig/Franco Route PRN Reason Start Time Stop Time Status Last Admin Dose Admin (sodium chloride 1000ml IV soln) 2,000 ml ONCE ONCE IV 02/01/25 12:00 02/01/25 12:01 DC 02/01/25 12:59 2,000 ML Ceftriaxone Sodium/Dextrose 50 ml @ 100 mls/hr ONCE ONCE IV 02/01/25 12:00 02/01/25 12:29 DC 02/01/25 12:58 100 MLS/HR (Toprol XL (24-hour) tablet) 50 mg DAILY ONCE PO 02/01/25 14:05 02/01/25 14:06 DC 02/01/25 14:57 50 MG (Lopressor IV) 5 mg Q15M IV 02/01/25 14:30 02/01/25 15:01 DC 02/01/25 15:47 5 MG Vital Signs 02/01/25 02/01/25 02/01/25 02/01/25 11:27 11:38 12:38 14:53 Temp 97.5 Pulse 85 84 89 Resp 18 18 16 B/P (MAP) 200/103 206/112 (143) Pulse Ox 95 97 O2 Flow Rate 0 4/2402/01/25 02/01/25 02/01/25 14:55 14:56 15:47 15:48 Pulse 80 85 98 90 Resp 16 14 16 B/P (MAP) 205/102 (136) 196/108 (137) 187/116 (139) Pulse Ox 95 96 97 O2 Flow Rate 0 0 0 Laboratory Tests Test 02/01/25 12:16 02/01/25 13:10 White Blood Count 5.3 Red Blood Count 4.77 Hemoglobin 13.4 L Hematocrit 40.9 L Mean Corpuscular Volume 85.8 Mean Corpuscular Hemoglobin 28.2 Mean Corpuscular Hemoglobin Concent 32.9 L Red Cell Distribution Width 14.9 H Platelet Count 190 Mean Platelet Volume 9.3 Neutrophils (%) (Auto) 61.7 Lymphocytes (%) (Auto) 23.3 Monocytes (%) (Auto) 7.9 Eosinophils (%) (Auto) 6.2 H Basophils (%) (Auto) 0.9 Neutrophils # (Auto) 3.3 Lymphocytes # (Auto) 1.2 Monocytes # (Auto) 0.4 Eosinophils # (Auto) 0.3 Basophils # (Auto) 0.0 CBC Comment Sodium Level 142 Potassium Level 4.2 Chloride Level 107 Carbon Dioxide Level 30.6 Anion Gap 4 L Blood Urea Nitrogen 25 H Creatinine 1.08 Estimated GFR/1.73 m2 66 BUN/Creatinine Ratio 23.1 H Glucose Level 118 H Lactic Acid Level 1.3 Calcium Level 9.6 Magnesium Level 1.8 Troponin I High Sensitivity 34 Albumin 3.6 Procalcitonin < 0.05 Chemistry Comments Urine Specimen Description Straight cath Urine Color Yellow Urine Clarity Clear Urine pH 6.0 Urine Specific [place] 1.025 Urine Protein 30 H Urine Glucose (UA) Negative Urine Ketones Negative Urine Occult Blood Trace-intact Urine Nitrite Negative Urine Bilirubin Negative Urine Urobilinogen 0.2 Urine Leukocyte Esterase Negative Urine RBC 3-10 Urine WBC 0-4 Urine Squamous Epithelial Cells Few Urine Bacteria Few Urine Culture Indicated Not ind Volume Urine Centrifuged 10 ml Urine Comment Microbiology Date/Time Source Procedure Growth Status 02/01/25 12:16 Blood Arm Right Blood Culture - Preliminary NEGATIVE (LESS THAN 24 HOURS) Resulted Re-Evaluation Re-Evaluation : Re-Evaluation: Resolved, Improved Progress Patient was seen and examined. Patient was given reassurance. Patient was brought in because of foul-smelling urine altered mental status. Patient was seen in bed 10 immediately received fluids. Rocephin 2 g was given. However during the workup patient did not have any signs of infection with hydration his mental status improved he has end-stage dementia. states he does look better. Patient refuses to take medications from her so he received both oral and IV Lopressor. With negative laboratory work patient was then discharged home. Also patient was showing signs of improvement. Patient's CBC WBC was 5.3 without any leukocytosis. H and H was 13 and 40. Chemistry was within normal limits. BUN is slightly elevated at 25. BUN creatinine ratios slightly elevated 23.1 suggestive of some dehydration otherwise procalcitonin was negative as far as infection goes urinalysis showed a specific gravity of 1.025 again consistent with dehydration but no signs of infection. Patient was then discharged home. Continuous threat monitoring analyst interpretation shows normal sinus rhythm heart rate 80s, no ectopy, normal, my interpretation. Pulse oximetry monitor interpretation shows normal oxygenation 95% room air, normal, my interpretation. EKG/XRAY/CT/US/VASC/MRI EKG : Additional Comment [facility] Test Date: 2025-02-01 Test Time: 12:05:27 Pat Name: BLAIR FRANCO Department: [facility]- Patient ID: [id number] Room: Gender: Senior Corporate Accountant: : 1945 Requested By: GUNNAR ALANIS Order Number: [id number] Reading MD: Dr. Gunnar Alanis Measurements Intervals [place] Rate: 84 P: 57 MA: 150 QRS: -2 QRSD: 153 T: 73 QT: 419 QTc: 496 Interpretive Statements Sinus rhythm Nonspecific intraventricular conduction delay Baseline wander in lead(s) V4 Electronically Signed On 02-01-2025 14:11:[address] Gunnar Alanis Please click the below link to view image of tracing. EKG Date and Time:02/01/25 1205 Electronically Signed by: GUNNAR ALANIS MD Date and Time: 02/01/25 1411 Chest X-Ray : Additional Comments CHEST RADIOGRAPH Indication: SEPSIS Technique: Single frontal view of the chest was obtained COMPARISON: DI CHEST,SINGLE VIEW on DOS: 10/14/24, DI CHEST,SINGLE VIEW on DOS: 01/15/24, DI CHEST,SINGLE VIEW on DOS: 10/10/23, DI CHEST,SINGLE VIEW on DOS: 09/07/23, DI CHEST,SINGLE VIEW on DOS: 09/06/23 FINDINGS: Lines and Tubes: Median sternotomy Lungs: Increased interstitial prominence Pleura: No effusion. No pneumothorax. Cardiomediastinal contours: Unremarkable Bones: Unremarkable IMPRESSION: Possible mild pulmonary vascular congestion versus mild viral pneumonia Electronically Signed by:RITO FREIRE MD Date & Time: 02/01/25 1222 Medical Decision Making Additional info obtained from: old records Differential Dx:Considerations: Include: dehydration, Delirium Tr., DKA, en cephalopathy, hypercalcemia, hypoglycemia, hypernatremia, hyponatremia, hypoxia, postictal, closed head injury, C-spine injury, CVA, mass lesion, subarachnoid hemorrhage, drug overdose, encephalopathy, ETOH intoxication, medication toxicity, infection - sepsis, infection - UTI, heart failure, renal failure, respiratory failure, hyperthermia, hypothermia, other Departure Time of Disposition: 14:31 Disposition: 01 HOME / SELF CARE / HOMELESS Impression: Primary Impression: Transient mental status Additional Impressions: Hypertension Qualified Codes: I10 - Essential (primary) hypertension Dehydration Condition: Stable Discharge Instructions: Altered Mental Status Referrals: NO PRIMARY CARE PROVIDER (PCP) Education Educated: Family Educated regarding: diagnosis, treatment, need for follow up Signature Scribe Signature: Scribed for Gunnar Alanis MD by Sandi Hyman . 02/01/25 12:05 Attestation: The note accurately reflects work and decisions made by me.Gunnar Alanis MD 02/01/25 11:56 GUNNAR ALANIS MD Feb 01, 2025 11:56 SANDI BRIGHT Feb 01, 2025 12:05
--- NOTE | 2025-02-01 12:07 | ELECTROCARDIOGRAPH REPORT ---
[facility] Test Date: 2025-02-01 Test Time: 12:05:27 Pat Name: BLAIR FRANCO Department: [facility] Patient ID: [id number] Room: Gender: M Dock Associate: : 1945 Requested By: MACIEL GAMINO Order Number: [id number] Reading MD: Dr. Maciel Gamino Measurements Intervals [place] Rate: 84 P: 57 AL: 150 QRS: -2 QRSD: 153 T: 73 QT: 419 QTc: 496 Interpretive Statements Sinus rhythm Nonspecific intraventricular conduction delay Baseline wander in lead(s) V4 Electronically Signed On 02-01-2025 14:11:[address] Maciel Gamino Please click the below link to view image of tracing.
[2025-02-01 12:24] LABS: BASOPHILS % (AUTO) 0.9 % (0-1); EOSINOPHILS # (AUTO) 0.3 X10'3 (0-0.9); EOSINOPHILS % (AUTO) 6.2 % (0-6); HEMATOCRIT 40.9 % (42.0-52.0); HEMOGLOBIN 13.4 g/dl (14.0-17.9); LYMPHOCYTES # (AUTO) 1.2 X10'3 (1.1-4.8); LYMPHOCYTES % (AUTO) 23.3 % (21-51); MEAN CORPUSCULAR HEMOGLOBIN 28.2 PG (27.0-31.0); MEAN CORPUSCULAR HGB CONC 32.9 g/dL (33.0-36.5); MEAN CORPUSCULAR VOLUME 85.8 FL (78-98); MEAN PLATELET VOLUME 9.3 FL (7.4-10.4); MONOCYTES # (AUTO) 0.4 X10'3 (0-0.9); MONOCYTES % (AUTO) 7.9 % (2-12); NEUTROPHILS # (AUTO) 3.3 X10'3 (1.8-7.7); NEUTROPHILS % (AUTO) 61.7 % (42-75); PLATELET COUNT 190 X10'3 (140-440); RED BLOOD COUNT 4.77 X10'6 (4.70-6.10); RED CELL DISTRIBUTION WIDTH 14.9 % (11.5-14.5); WHITE BLOOD COUNT 5.3 X10'3 (4.5-11.0)
--- NOTE | 2025-02-01 12:24 | RADIOLOGY REPORT ---
CHEST RADIOGRAPH Indication: SEPSIS Technique: Single frontal view of the chest was obtained COMPARISON: DI CHEST,SINGLE VIEW on DOS: 10/14/24, DI CHEST,SINGLE VIEW on DOS: 01/15/24, DI CHEST,SINGLE VIEW on DOS: 10/10/23, DI CHEST,SINGLE VIEW on DOS: 09/07/23, DI CHEST,SINGLE VIEW on DOS: 09/06/23 FINDINGS: Lines and Tubes: Median sternotomy Lungs: Increased interstitial prominence Pleura: No effusion. No pneumothorax. Cardiomediastinal contours: Unremarkable Bones: Unremarkable IMPRESSION: Possible mild pulmonary vascular congestion versus mild viral pneumonia
[2025-02-01 12:42] LABS: ALBUMIN 3.6 G/DL (3.4-5.0); ANION GAP 4 (8-16); BLOOD UREA NITROGEN 25 MG/DL (7-18); BUN/CREATININE RATIO 23.1 (10.0-20.0); CALCIUM 9.6 MG/DL (8.5-10.1); CHLORIDE 107 MMOL/L (99-107); CREATININE 1.08 MG/DL (0.60-1.10); GLUCOSE 118 MG/DL (70-104); MAGNESIUM 1.8 MG/DL (1.5-2.4); POTASSIUM 4.2 MMOL/L (3.5-5.1); SODIUM 142 MMOL/L (135-145); TOTAL CARBON DIOXIDE 30.6 MMOL/L (24-32); eCRCL 62 ML/MIN; eGFR 66 ML/MIN
[2025-02-01] MEDS: morphine 4 MG/ML inj SYRINge IV ONE (12:45)
[2025-02-01] MEDS: CefTRIAXone 2gm/D5W 50ml BAG 50 ML IV ONE (12:58)
[2025-02-01] MEDS: normal saline 1000ML IV soln IV ONE (12:59)
[2025-02-01 14:14] LABS: BILIRUBIN,URINE NEGATIVE (Neg); CLARITY,URINE CLEAR (Clear); COLOR,URINE YELLOW (Yellow); GLUCOSE, URINE NEGATIVE (Neg); KETONES,URINE NEGATIVE (Neg); LEUKOCYTE ESTERASE ,URINE NEGATIVE (Neg); NITRITES, URINE NEGATIVE (Neg); OCCULT BLOOD,URINE TRACE-INTACT (Neg); PROTEIN,URINE 30 mg/dl (Neg); UROBILINOGEN,URINE 0.2 E.U/dL (0.2-1.0)
[2025-02-01 14:20] LABS: UA COLLECTION TYPE STRAIGHT CATH
[2025-02-01 14:23] LABS: WBC,URINE 0-4 /HPF (0-4)
[2025-02-01 14:24] LABS: BACTERIA,URINE FEW /HPF (Neg)
[2025-02-01] MEDS: metoprolol tartrate 1mg/ml inj IV SCH (14:53)
[2025-02-01] MEDS: metoprolol succinate 25mg (24-HOUR) SR. Tablet PO ONE (14:57)
[2025-02-01 15:48] VITALS: BP 187/116; PULSE 90; RESP 16; O2SAT 97
[2025-02-01 16:27] LABS: SQUAMOUS EPITHELIAL CELL,UR FEW /LPF (FEW)
== END 2025-02-01 16:18 | disposition home or self-care (01) ==
LOC: ER 11:22
DX: R40.4 Transient alteration of awareness (principal); I10 Essential (primary) hypertension; E86.0 Dehydration; I25.10 Atherosclerotic heart disease of native coronary artery without angina pectoris; F02.80 Dementia in other diseases classified elsewhere, unspecified severity, without behavioral disturbance, psychotic disturbance, mood disturbance, and anxiety; G30.9 Alzheimer's disease, unspecified; I25.2 Old myocardial infarction; E78.00 Pure hypercholesterolemia, unspecified; Z88.0 Allergy status to penicillin; Z88.5 Allergy status to narcotic agent; Z88.8 Allergy status to other drugs, medicaments and biological substances; Z95.1 Presence of aortocoronary bypass graft; Z79.82 Long term (current) use of aspirin; Z79.899 Other long term (current) drug therapy; G89.29 Other chronic pain
CPT/HCPCS: 36415; 71045; 80048; 81001; 83605; 83735; 84145; 84484; 85025; 87040; 93005; 96365; 96375; 96376; 99285; J0696; J3490; J7030; C1758

== ENCOUNTER 2025-02-05 08:35 | Emergency (ER) | payer OTHER, MEDICARE ==
[~2025-02-05] VITALS: Ht 182.9 cm; Wt 80.0 kg
[~2025-02-05 08:35] MED LIST changes: -DEXA6TAB PO; -NOR5T PO
--- NOTE | 2025-02-05 10:24 | Physician Documentation ---
History of Present Illness ~ Chief Complaint: ALOC Stated Complaint: ALOC Time Seen by MD: 10:22 Primary Medical Doctor: connie black Mode of Arrival: EMS HPI 79-year-old male with a history of CAD, hypertension, dementia brought in by ambulance along with his . Patient is nonverbal and can not provide a history. states that over the past three weeks that patient has had a great decline in his functioning hand clinical status. She states that this morning she went to wake him up and she was unable to. He appeared very altered and was not speaking. She also states that his legs were locked up and he would not move them. Patient typically is able to at least try and walk and is able to hold a conversation but this is much different from his normal baseline status. She states that he has gradually grown weaker. He also appeared to be having some issues with breathing earlier today. Patient was seen here last week and had a full workup done for a stroke which was negative and was then discharged. 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 Scheduled Aspirin (Aspirin), 1 TAB.CHEW PO DAILY, (Reported) Atorvastatin Calcium (Atorvastatin Calcium), 1 TAB PO DAILY, (Reported) Buspirone HCl (Buspirone HCl), 1 TAB PO Q12H, (Reported) Cholecalciferol (Vitamin D3) (Vitamin D3), 1 CAP PO Q7D, (Reported) Donepezil Hcl (Donepezil Hcl), 1 TAB PO DAILY, (Reported) Metoprolol Succinate (Metoprolol Succinate), 1 TAB PO DAILY, (Reported) Olanzapine* (Zyprexa Zydis Odt*), 1 TAB PO HS, (Reported) Tamsulosin Hcl (Flomax), 1 CAP PO DAILY, (Reported) Discontinued Medications Amlodipine Besylate (Amlodipine Besylate), 2 TAB PO DAILY Discontinued Reason: patient no longer taking Dexamethasone (Dexamethasone), 6 MG PO DAILY Discontinued Reason: patient no longer taking Past Medical History Past Medical History: Dementia, Coronary Artery Disease, High Cholesterol, Hypertension, Myocardial Infarction, Chronic Pain, Anxiety Past Surgical History: angioplasty, coronary bypass surgery Patient History: Alzheimer's disease MOTHER FH: ovarian cancer in first degree relative FH: prostate cancer FAMILY/OTHER FAMILY/OTHER Drug Use: none Lives with: Spouse Lives In: Home Occupation: retired Review of Systems All Other Systems at this time: Reviewed and Negative Physical Exam Vital Signs: Temperature: 99.5, Source: Oral, Heart Rate: 96, Respiratory Rate: 25, BP: 163/87, Pulse Oximetry: 90, Weight: 80.000 Physical Exam I have reviewed the triage vitals. CONST: Nonverbal, no acute distress HENT: Head Atraumatic EYES: Pupils are equal, round and reactive to light. Normal conjunctiva NECK: Normal range of motion. Supple. CARDIO: Normal rate and regular rhythm. No murmurs, rubs, or gallops. S1, S2. PULM/CHEST: No respiratory distress. Diminished breath sounds bilaterally ABD: Soft and nontender. Nondistended. Bowel sounds normal. No guarding. : Exam deferred MSK: No edema. No deformity. NEURO: Patient opens eyes to voice but is nonverbal and does not respond., withdraws to pain SKIN: Warm and dry. PSYCH: Unable to assess Progress Results/Orders Results/Orders Orders - JORGITO SRINIVASAN MD Type And Screen (02/05/25 10:25) Culture Blood (02/05/25 10:25) Chest,Single View (02/05/25 10:25) Ct Head (02/05/25 11:03) Hs Troponin I W Calculations (02/05/25 12:25) Hs Troponin I W Calculations (02/05/25 13:25) Straight Cath For Urine Sample (02/05/25 10:25) Nicardipine-Ns 40mg/200ml Ivpb (Cardene- (02/05/25 11:55) Lactic,2hr (02/05/25 12:28) Completed Orders - JORGITO SRINIVASAN MD Cbc/Diff (02/05/25 10:25) CK (02/05/25 10:25) Pt Inr (02/05/25 10:25) PTT (02/05/25 10:25) Chest,Single View (02/05/25 10:25) PBNP (02/05/25 10:25) MG (02/05/25 10:25) Normal Saline 1000ml (Sodium Chloride 10 (02/05/25 10:25) Ct Head (02/05/25 11:03) CMP (02/05/25 10:25) Hs Troponin I W Calculations (02/05/25 10:25) Lacticsepsis (02/05/25 10:25) Ua W/Microscopic, Cult If Ind (02/05/25 09:21) Electrocardiogram (02/05/25 09:04) Medications Received in ER Medications (Trade) Dose Ordered Sig/Franco Route PRN Reason Start Time Stop Time Status Last Admin Dose Admin (sodium chloride 1000ml IV soln) 500 ml ONCE ONCE IVB 02/05/25 10:25 02/05/25 10:28 DC 02/05/25 11:40 500 ML Nicardipine/ Sodium Chloride 200 ml @ 25 mls/hr Q8H IV 02/05/25 11:55 02/05/25 12:34 25 MLS/HR Vital Signs 02/05/25 02/05/25 02/05/25 02/05/25 08:41 08:45 09:00 09:15 Temp 99.5 98.4 Pulse 96 96 99 102 Resp 21 B/P (MAP) 163/87 163/87 (112) 164/86 (112) 181/99 (126) Pulse Ox 90 90 96 86 O2 Flow Rate 2.0 2.0 4.0 02/05/25 02/05/25 02/05/25 02/05/25 09:30 09:45 09:53 10:00 Pulse 94 96 91 Resp 21 B/P (MAP) 139/87 (104) 143/95 (111) 155/86 (109) Pulse Ox 91 94 94 O2 Flow Rate 4.0 4.0 4.0 02/05/25 02/05/25 02/05/25 02/05/25 10:15 10:30 10:45 11:00 Temp 98.1 Pulse 101 101 101 102 Resp 39 B/P (MAP) 195/98 (130) 188/110 (136) 175/129 (144) 175/129 (144) Pulse Ox 92 97 96 97 O2 Flow Rate 4.0 4.0 4.0 4.0 4/28/25 02/05/25 02/05/25 02/05/25 11:15 11:30 11:45 12:00 Pulse 96 91 98 98 B/P (MAP) 170/94 (119) 158/95 (116) 201/102 (135) 209/115 (146) Pulse Ox 95 96 95 98 O2 Flow Rate 4.0 4.0 4.0 4.0 02/05/25 02/05/25 02/05/25 02/05/25 12:05 12:10 12:15 12:20 Pulse 98 89 91 91 B/P (MAP) 209/114 (145) 175/85 (115) 137/72 (93) 144/73 (96) Pulse Ox 100 98 99 99 O2 Flow Rate 4.0 4.0 4.0 4.0 02/05/25 02/05/25 02/05/25 02/05/25 12:25 12:28 12:30 12:34 Pulse 91 97 Resp 24 B/P (MAP) 137/75 (95) 157/8 (57) 209/115 Pulse Ox 98 99 O2 Flow Rate 4.0 4.0 Laboratory Tests Test 02/05/25 09:21 02/05/25 10:24 02/05/25 12:33 Urine Specimen Description [place] cath Urine Color Yellow Urine Clarity Cloudy Urine pH 6.0 Urine Specific [place] >=1.030 Urine Protein 30 H Urine Glucose (UA) Negative Urine Ketones Trace H Urine Occult Blood Negative Urine Nitrite Negative Urine Bilirubin Negative Urine Urobilinogen 0.2 Urine Leukocyte Esterase Negative Urine RBC None seen Urine WBC 0-4 Urine Squamous Epithelial Cells Few Urine Amorphous Urates 3+ Urine Bacteria Few Urine Culture Indicated Not ind Volume Urine Centrifuged 10 ml Urine Comment White Blood Count 9.3 Red Blood Count 4.74 Hemoglobin 13.4 L Hematocrit 40.7 L Mean Corpuscular Volume 85.7 Mean Corpuscular Hemoglobin 28.3 Mean Corpuscular Hemoglobin Concent 33.0 Red Cell Distribution Width 15.0 H Platelet Count 174 Mean Platelet Volume 9.8 Neutrophils (%) (Auto) 73.0 Lymphocytes (%) (Auto) 13.8 L Monocytes (%) (Auto) 11.2 Eosinophils (%) (Auto) 1.7 Basophils (%) (Auto) 0.3 Neutrophils # (Auto) 6.8 Lymphocytes # (Auto) 1.3 Monocytes # (Auto) 1.0 H Eosinophils # (Auto) 0.2 Basophils # (Auto) 0.0 CBC Comment Prothrombin Time 10.4 INR International Normalized Ratio 1.0 Activated Partial Thromboplast Time 27 Coagulation Comments Sodium Level 141 Potassium Level 3.9 Chloride Level 105 Carbon Dioxide Level 28.8 Anion Gap 7 L Blood Urea Nitrogen 47 H Creatinine 1.28 H Estimated GFR/1.73 m2 54 BUN/Creatinine Ratio 36.7 H Glucose Level 141 H Lactic Acid Level 2.1 H Calcium Level 10.0 Magnesium Level 1.9 Total Bilirubin 1.1 H Aspartate Amino Transf (AST/SGOT) 25 Alanine Aminotransferase (ALT/SGPT) 27 Alkaline Phosphatase 77 Total Creatine Kinase 414 H Troponin I High Sensitivity 33 Pro-B-Type Natriuretic Peptide 266 Total Protein 6.8 Albumin 3.4 Globulin 3.4 Albumin/Globulin Ratio 1.0 L Chemistry Comments EKG/XRAY/CT/US/VASC/MRI EKG : Additional Comment EKG as interpreted by me indicates a atrial paced rhythm which is normal sinus rhythm with a rate of 78 beats per minute, there are no signs of ischemia, mk l axis Chest X-Ray : Additional Comments EXAM: DI CHEST,SINGLE VIEW Indication: ALOC Technique: Single frontal view of the chest was obtained Comparison: DI CHEST,SINGLE VIEW on DOS: 02/01/25, DI CHEST,SINGLE VIEW on DOS: 10/14/24, DI CHEST,SINGLE VIEW on DOS: 01/15/24, DI CHEST,SINGLE VIEW on DOS: 10/10/23, DI CHEST,SINGLE VIEW on DOS: 09/07/23 FINDINGS: Lines and Tubes: None Lungs: No focal consolidation. Pleura: No effusion. No pneumothorax. Cardiomediastinal contours: Unremarkable. Atherosclerotic vascular calcifications of the thoracic aorta are noted. Bones: No acute osseous abnormality. IMPRESSION: No acute cardiopulmonary disease. : Impression EXAM: CT CT HEAD INDICATION: ALOC TECHNIQUE: CT of the head without intravenous contrast. Radiation Dose : 1. Head: CT Dose: CTDI volume is 63.3 mGy. Dose-length product is 1194.7 mGy*cm The dose indicators for CT are the volume Computed Tomography (CT) Dose Index (CTDIvol) and the Dose Length Product (DLP), and are measured in units of mGy and mGy-cm, respectively. These indicators are not patient dose, but values generated from the CT scanner acquisition factors. The report includes radiation exposure data for exposures received during this examination. COMPARISON: CT CT HEAD on DOS: 08/28/24, CT CT HEAD on DOS: 01/15/24, CT CT HEAD on DOS: 10/10/23, CT CT HEAD on DOS: 10/10/23, CT CT STROKE ALERT on DOS: 09/06/23 FINDINGS: Left subdural hematoma measuring 2.7 cm in AP dimension with fluid fluid level concerning for active bleeding. There is a 1.2 cm left to right midline shift. There is associated effacement and edema in the entire left cerebral hemisphere. There is a mass effect on the left lateral ventricles. Possible subdural hygroma versus chronic subdural hematoma the right cerebral hemisphere measuring 10 mm. Patchy periventricular and subcortical white matter hypoattenuation is nonspecific but may be related to small vessel ischemic disease. The visualized paranasal sinuses and mastoid air cells are clear. The surrounding soft tissues and osseous structures are unremarkable. IMPRESSION: Left subdural hematoma measuring 2.7 cm in AP dimension with fluid fluid level concerning for active bleeding. There is a 1.2 cm left to right midline shift. There is associated effacement and edema in the entire left cerebral hemisphere. There is a mass effect on the left lateral ventricles. Possible subdural hygroma versus chronic subdural hematoma the right cerebral hemisphere measuring 10 mm. Critical Result: Intracranial hemorrhage Findings discussed with JORGITO SRINIVASAN at 02/05/2025 11:36 AM, and acknowledged receipt and understanding of the findings. Medical Decision Making Additional Information This is a 79-year-old male who presents with acute onset altered level of consciousness. He has baseline dementia however he has deviated significantly from his baseline with a past couple of days. His workup including labs and imaging indicates that he has a subdural hematoma present with a midline shift. I spoke with the patient's and she mentioned that the patient has been falling a lot but she does not recall any specific instances of him hitting his head. His lab workup was otherwise grossly unremarkable. EKG was also grossly unremarkable. The patient was protecting his airway but did require some oxygen by nasal cannula to keep his oxygen saturation above 90%. Patient was hypertensive with systolic blood pressures in the 190s. He was started on a nicardipine drip with titration to keep blood pressure below 140 systolic. I spoke with emergency physician over at [facility] who agreed to accept the patient for transfer. Patient needs to be transferred due to the fact that we do not have neurosurgery service available at our hospital but it is available at [facility]. Patient to be transferred via EMS. Departure Disposition: 02 SHORT TERM HOSPITAL ([facility]) Impression: Primary Impression: Subdural hematoma Additional Impression: Altered level of consciousness Condition: Critical Referrals: NO PRIMARY CARE PROVIDER (PCP) Critical Care Note Total Time (mins): 103 Critical Care Note The very real possibility of a deterioration of this patient's condition required the highest level of my preparedness for sudden, emergent intervention. I provided critical care services, which included medication orders, frequent reevaluations of the patient's condition and response to treatment, ordering and reviewing test results, and discussing the case with various consultants. Excludes time spent performing separately billable procedures. The critical care time associated with the care of the patient was. Signature Scribe Signature: 1 Attestation: 1 JORGITO SRINIVASAN MD Feb 05, 2025 10:24
[2025-02-05 11:00] VITALS: TEMP 98.1
[2025-02-05 11:01] LABS: BASOPHILS % (AUTO) 0.3 % (0-1); EOSINOPHILS # (AUTO) 0.2 X10'3 (0-0.9); EOSINOPHILS % (AUTO) 1.7 % (0-6); HEMATOCRIT 40.7 % (42.0-52.0); HEMOGLOBIN 13.4 g/dl (14.0-17.9); LYMPHOCYTES # (AUTO) 1.3 X10'3 (1.1-4.8); LYMPHOCYTES % (AUTO) 13.8 % (21-51); MEAN CORPUSCULAR HEMOGLOBIN 28.3 PG (27.0-31.0); MEAN CORPUSCULAR VOLUME 85.7 FL (78-98); MEAN PLATELET VOLUME 9.8 FL (7.4-10.4); MONOCYTES % (AUTO) 11.2 % (2-12); NEUTROPHILS # (AUTO) 6.8 X10'3 (1.8-7.7); PLATELET COUNT 174 X10'3 (140-440); RED BLOOD COUNT 4.74 X10'6 (4.70-6.10); WHITE BLOOD COUNT 9.3 X10'3 (4.5-11.0)
[2025-02-05 11:18] LABS: ALANINE AMINOTRANSFERASE 27 U/L (12-78); ALBUMIN 3.4 G/DL (3.4-5.0); ALKALINE PHOSPHATASE 77 IU/L (46-116); ANION GAP 7 (8-16); ASPARTATE AMINO TRANSFERASE 25 U/L (10-37); BILIRUBIN,TOTAL 1.1 MG/DL (0.1-1.0); BLOOD UREA NITROGEN 47 MG/DL (7-18); BUN/CREATININE RATIO 36.7 (10.0-20.0); CHLORIDE 105 MMOL/L (99-107); CREATININE 1.28 MG/DL (0.60-1.10); GLUCOSE 141 MG/DL (70-104); POTASSIUM 3.9 MMOL/L (3.5-5.1); SODIUM 141 MMOL/L (135-145); TOTAL CARBON DIOXIDE 28.8 MMOL/L (24-32); TOTAL PROTEIN 6.8 G/DL (6.4-8.2); eCRCL 52 ML/MIN; eGFR 54 ML/MIN
[2025-02-05 11:23] LABS: APTT 27 SECONDS (22-32); PROTHROMBIN TIME 10.4 SECONDS (9.0-12.0)
[2025-02-05 11:25] LABS: CREATINE KINASE 414 U/L (39-308); MAGNESIUM 1.9 MG/DL (1.5-2.4); PRO BRAIN NATRIURETIC PEPTIDE 266 PG/ML (0-450)
[2025-02-05 11:35] LABS: BILIRUBIN,URINE NEGATIVE (Neg); CLARITY,URINE CLOUDY (Clear); COLOR,URINE YELLOW (Yellow); GLUCOSE, URINE NEGATIVE (Neg); KETONES,URINE TRACE mg/dl (Neg); LEUKOCYTE ESTERASE ,URINE NEGATIVE (Neg); NITRITES, URINE NEGATIVE (Neg); OCCULT BLOOD,URINE NEGATIVE (Neg); PROTEIN,URINE 30 mg/dl (Neg); UROBILINOGEN,URINE 0.2 E.U/dL (0.2-1.0)
--- NOTE | 2025-02-05 11:39 | RADIOLOGY REPORT ---
EXAM: CT CT HEAD INDICATION: ALOC TECHNIQUE: CT of the head without intravenous contrast. Radiation Dose : 1. Head: CT Dose: CTDI volume is 63.3 mGy. Dose-length product is 1194.7 mGy*cm The dose indicators for CT are the volume Computed Tomography (CT) Dose Index (CTDIvol) and the Dose Length Product (DLP), and are measured in units of mGy and mGy-cm, respectively. These indicators are not patient dose, but values generated from the CT scanner acquisition factors. The report includes radiation exposure data for exposures received during this examination. COMPARISON: CT CT HEAD on DOS: 08/28/24, CT CT HEAD on DOS: 01/15/24, CT CT HEAD on DOS: 10/10/23, CT C T HEAD on DOS: 10/10/23, CT CT STROKE ALERT on DOS: 09/06/23 FINDINGS: Left subdural hematoma measuring 2.7 cm in AP dimension with fluid fluid level concerning for active bleeding. There is a 1.2 cm left to right midline shift. There is associated effacement and edema in the entire left cerebral hemisphere. There is a mass effect on the left lateral ventricles. Possible subdural hygroma versus chronic subdural hematoma the right cerebral hemisphere measuring 10 mm. Patchy periventricular and subcortical white matter hypoattenuation is nonspecific but may be related to small vessel ischemic disease. The visualized paranasal sinuses and mastoid air cells are clear. The surrounding soft tissues and osseous structures are unremarkable. IMPRESSION: Left subdural hematoma measuring 2.7 cm in AP dimension with fluid fluid level concerning for active bleeding. There is a 1.2 cm left to right midline shift. There is associated effacement and edema in the entire left cerebral hemisphere. There is a mass effect on the left lateral ventricles. Possible subdural hygroma versus chronic subdural hematoma the right cerebral hemisphere measuring 10 mm. Critical Result: Intracranial hemorrhage Findings discussed with JORGITO SRINIVASAN at 02/05/2025 11:36 AM, and acknowledged receipt and unders tanding of the findings.
[2025-02-05] MEDS: normal saline 1000ML IV soln IVB ONE (11:40)
[2025-02-05 11:42] LABS: UA COLLECTION TYPE FOLEY CATH
[2025-02-05 11:47] LABS: WBC,URINE 0-4 /HPF (0-4)
[2025-02-05 11:48] LABS: RBC,URINE NONE SEEN /HPF (0-2)
[2025-02-05 11:49] LABS: AMORPHOUS URATES 3+; BACTERIA,URINE FEW /HPF (Neg); SQUAMOUS EPITHELIAL CELL,UR FEW /LPF (FEW)
[2025-02-05 12:28] VITALS: RESP 24
[2025-02-05] MEDS ORDERED: OLAN5TAB5 PO (12:28)
[2025-02-05 12:30] VITALS: O2SAT 99
[2025-02-05] MEDS: niCARDipine-NS 40mg/200ml IVPB 200 ML IV SCH (12:34)
--- NOTE | 2025-02-05 12:34 | ELECTROCARDIOGRAPH REPORT ---
[facility] Test Date: 2025-02-05 Test Time: 09:04:33 Pat Name: BLAIR FRANCO Department: EMERGENCY ROOM Room: Gender: M Office Administration: : 1945 Requested By: JORGITO SRINIVASAN Order Number: [id number] Reading MD: Dr. Gunnar Alanis Measurements Intervals [place] Rate: 99 P: 75 AL: 143 QRS: 16 QRSD: 83 T: 103 QT: 378 QTc: 486 Interpretive Statements Atrial-paced complexes Probable left atrial enlargement Borderline repolarization abnormality Borderline prolonged QT interval Electronically Signed On 02-05-2025 19:02:[address] Gunnar Alanis Please click the below link to view image of tracing.
--- NOTE | 2025-02-05 12:47 | RADIOLOGY REPORT ---
EXAM: DI CHEST,SINGLE VIEW Indication: ALOC Technique: Single frontal view of the chest was obtained Comparison: DI CHEST,SINGLE VIEW on DOS: 02/01/25, DI CHEST,SINGLE VIEW on DOS: 10/14/24, DI CHEST,SINGL E VIEW on DOS: 01/15/24, DI CHEST,SINGLE VIEW on DOS: 10/10/23, DI CHEST,SINGLE VIEW on DOS: 09/07/23 FINDINGS: Lines and Tubes: None Lungs: No focal consolidation. Pleura: No effusion. No pneumothorax. Cardiomediastinal contours: Unremarkable. Atherosclerotic vascular calcifications of the thoracic ao rta are noted. Bones: No acute osseous abnormality. IMPRESSION: No acute cardiopulmonary disease.
[2025-02-05] MEDS ORDERED: niCARDipine-NS 40mg/200ml IVPB 200 ML IV SCH (12:55)
[2025-02-05 13:18] VITALS: BP 141/73; PULSE 107
== END 2025-02-05 13:39 | disposition short-term general hospital (02) ==
LOC: ER 08:37
DX: S06.5XAA Traumatic subdural hemorrhage with loss of consciousness status unknown, initial encounter (principal); E78.00 Pure hypercholesterolemia, unspecified; G30.9 Alzheimer's disease, unspecified; F41.9 Anxiety disorder, unspecified; F02.80 Dementia in other diseases classified elsewhere, unspecified severity, without behavioral disturbance, psychotic disturbance, mood disturbance, and anxiety; I10 Essential (primary) hypertension; I25.10 Atherosclerotic heart disease of native coronary artery without angina pectoris; Z88.0 Allergy status to penicillin; Z88.5 Allergy status to narcotic agent; Z88.8 Allergy status to other drugs, medicaments and biological substances; Z95.1 Presence of aortocoronary bypass graft; X58.XXXA Exposure to other specified factors, initial encounter; Y93.89 Activity, other specified; Y92.89 Other specified places as the place of occurrence of the external cause; Y99.8 Other external cause status
CPT/HCPCS: 36415; 70450; 71045; 80053; 81001; 82550; 83605; 83735; 83880; 84484; 85025; 85610; 85730; 86885; 86900; 86901; 87040; 93005; 96361; 96374; 99291; 99292; J3490; J7030; J7040; 96365; A6590; C1758